=== PATIENT | female | born 1960 | race American Indian/Alaskan Native ===

== ENCOUNTER 2017-06-27 14:46 | Emergency (ER) | payer BC ==
[2017-06-27 18:40] LABS: Basophils % (Auto) 0.7 % (0.0-1.8); Hemoglobin 9.2 gm/dl (10.1-14.3); Mean Corpuscular HGB Conc 31 % (30-34); Mean Corpuscular Volume 77 fl (79-97); Platelet Count 179 K/mm3 (140-440); Red Blood Count 3.91 M/mm3 (3.65-5.03); Red Cell Distribution Width 13.4 % (13.2-15.2); White Blood Count 3.9 K/mm3 (4.5-11.0)
[2017-06-27 18:40] LABS: Bacteria,Urine 2+ /HPF (Negative); Bilirubin,Urine NEG (Negative); Blood,Urine SM (Negative); Ketones,Urine NEG (Negative); Leukocyte Esterase,Urine SM (Negative); Nitrite,Urine NEG (Negative)
[2017-06-27 18:43] LABS: Mean Corpuscular Hemoglobin 24 pg (28-32)
[2017-06-27 18:51] LABS: Anion Gap 18 mmol/L; BUN/Creatinine Ratio 20; Blood Urea Nitrogen 20 mg/dL (7-17); Calcium 8.3 mg/dL (8.4-10.2); Carbon Dioxide 28 mmol/L (22-30); Chloride 93.9 mmol/L (98-107); Glucose 121 mg/dL (65-100); Sodium 136 mmol/L (137-145)
[2017-06-27 19:14] VITALS: BP 127/64
--- NOTE | 2017-06-27 19:50 | Emergency Department Report ---
- General Chief complaint: Weakness Stated complaint: HYPERTENSION Time Seen by Provider: 06/27/17 18:48 Source: patient Mode of arrival: Ambulatory Limitations: No Limitations - History of Present Illness Initial comments: Patient with history of hypertension but has feel poor for several days. Went to PCP today after Dx with UTI yesterday and started on cipro. She had a BP of 93/51 at the clinic so she was sent here. She received 1 L NS in route per patient and immediately started feeling better. She was not tachycardic. No fevers, N/V. Complaint: generalized weakness -: Gradual, days(s) (3) Location: generalized Severity: moderate Severity scale (0 -10): 0 Consistency: intermittent Improves with: rest Worsens with: movement, exertion Context: recent illness Associated Symptoms: denies other symptoms - Related Data Allergies Allergy/AdvReac Type Severity Reaction Status Date / Time aspirin AdvReac Itching Verified 06/27/17 17:34 meperidine [From Demerol] AdvReac Unknown Verified 06/27/17 17:34 ED Review of Systems ROS: Stated complaint: HYPERTENSION Other details as noted in HPI Constitutional: weakness. denies: chills, fever Eyes: denies: eye pain, eye discharge, vision change ENT: denies: ear pain, throat pain Respiratory: denies: cough, shortness of breath, wheezing Cardiovascular: denies: chest pain, palpitations Endocrine: no symptoms reported Gastrointestinal: denies: abdominal pain, nausea, diarrhea Genitourinary: urgency, dysuria. denies: discharge Musculoskeletal: denies: back pain, joint swelling, arthralgia Skin: denies: rash, lesions Neurological: denies: headache, weakness, paresthesias Psychiatric: denies: anxiety, depression Hematological/Lymphatic: denies: easy bleeding, easy bruising ED Past Medical Hx - Past Medical History Previous Medical History?: Yes Hx Hypertension: Yes Hx Dementia: Yes - Surgical History Past Surgical History?: Yes Additional Surgical History: hystorectomy ED Physical Exam - General Limitations: No Limitations General appearance: alert, in no apparent distress - Head Head exam: Present: atraumatic, normocephalic - Eye Eye exam: Present: normal appearance - ENT ENT exam: Present: mucous membranes moist - Neck Neck exam: Present: normal inspection - Respiratory Respiratory exam: Present: normal lung sounds bilaterally. Absent: respiratory distress - Cardiovascular Cardiovascular Exam: Present: regular rate, normal rhythm. Absent: systolic murmur, diastolic murmur, rubs, gallop - GI/Abdominal GI/Abdominal exam: Present: soft, normal bowel sounds - Extremities Exam Extremities exam: Present: normal inspection - Back Exam Back exam: Present: normal inspection - Neurological Exam Neurological exam: Present: alert, oriented X3 - Psychiatric Psychiatric exam: Present: normal affect, normal mood - Skin Skin exam: Present: warm, dry, intact, normal color. Absent: rash ED Course Vital Signs 06/27/17 06/27/17 17:16 19:13 Temperature 99.3 F Pulse Rate 88 94 H Respiratory 20 16 Rate Blood Pressure 107/62 Blood Pressure 107/62 127/64 [Right] O2 Sat by Pulse 96 96 Oximetry ED Medical Decision Making - Lab Data Result diagrams: 06/27/17 18:30 06/27/17 18:30 unremarkable other than U/A c/w UTI. - Medical Decision Making Patient with UTI now treated with cipro. She appears dehydrated and improved with 1 L NS. She did not have positive orthostatics after the 1 L NS. She feels well and understands her dehydration status. She will hold BP meds until her BP is elevated and will return to the ED if worse. She does not appear septic. WBC was normal. BP normalized, and she was never tachycardic. Critical care attestation.: If time is entered above; I have spent that time in minutes in the direct care of this critically ill patient, excluding procedure time. ED Disposition Clinical Impression: Dehydration UTI (urinary tract infection) Qualifiers: Urinary tract infection type: acute cystitis Hematuria presence: with hematuria Qualified Code(s): N30.01 - Acute cystitis with hematuria Hypotension Qualifiers: Hypotension type: orthostatic hypotension Qualified Code(s): I95.1 - Orthostatic hypotension Disposition: -01 TO HOME OR SELFCARE Is pt being admited?: No Does the pt Need Aspirin: No Condition: Good Instructions: Hypotension (ED), Dehydration (ED), Urinary Tract Infection in Women (ED) Referrals: WESTLEY FANG MD [Staff Physician] - 3-5 Days Time of Disposition: 19:53
== END 2017-06-27 20:19 | disposition home or self-care (01) ==
LOC: ED 14:46
DX: N30.01 Acute cystitis with hematuria (principal); I95.1 Orthostatic hypotension; E86.0 Dehydration; I10 Essential (primary) hypertension; E11.9 Type 2 diabetes mellitus without complications
CPT/HCPCS: 36415; 80048; 81001; 85025

== ENCOUNTER 2019-06-06 09:42 | Day surgery (SDC) | payer BC, OTHER ==
--- NOTE | 2019-06-06 11:53 | Anesthesia Consultation ---
Anesthesia Consult and Med Hx Date of service: 06/06/19 - Airway Anesthetic Teeth Evaluation: Partials ROM Head & Neck: Adequate Mental/Hyoid Distance: Adequate Mallampati Class: Class II Intubation Access Assessment: Good - Pulmonary Exam CTA: Yes - Cardiac Exam Cardiac Exam: RRR - Pre-Operative Health Status ASA Pre-Surgery Classification: ASA3 Proposed Anesthetic Plan: MAC - Pulmonary Hx Smoking: No - Cardiovascular System Hx Hypertension: Yes
--- NOTE | 2019-06-06 11:54 | Anesthesia Day of Surgery ---
Anesthesia Day of Surgery - Day of Surgery Patient Examined: Yes Patient H&P Reviewed: Yes Patient is NPO: Yes
[2019-06-06] MEDS ORDERED: SODIUM CHLORIDE 0.9% 1000 ML 1,000 ML IV SCH (12:00)
[2019-06-06] MEDS ORDERED: PROPOFOL 200 MG/20 ML VIAL IV ONE ×2 (12:24)
--- NOTE | 2019-06-06 12:49 | Short Stay Summary ---
Short Stay Documentation Date of service: 06/06/19 Narrative H&P: The patient is a 58 yo aaf who presents for screening colonoscopy; denies prior screening colonoscopy. - History Past Medical History: other (no changes from clinic note) Past Surgical History: Other Social history: other - Allergies and Medications Current Medications: Allergies aspirin Adverse Reaction (Verified 06/27/17 17:34) Itching meperidine [From Demerol] Adverse Reaction (Verified 06/27/17 17:34) Unknown Home Medications Medication Instructions Recorded Confirmed Last Taken Type AtorvaSTATin [Lipitor] 10 mg PO QHS 06/06/19 06/06/19 06/05/19 19:00 History Metformin HCl [Metformin HCl ER] 1 tab PO DAILY 06/06/19 06/06/19 06/05/19 19:00 History Sitagliptin Phosphate [Januvia] 1 tab PO DAILY 06/06/19 06/06/19 06/06/19 07:00 History carvediloL [Coreg] 1 tab PO DAILY 06/06/19 06/06/19 06/05/19 11:00 History Active Medications Sodium Chloride (Nacl 0.9% 1000 Ml) 1,000 mls @ 50 mls/hr IV DIRECT HARRISON Last Admin: 06/06/19 11:32 Dose: 50 mls/hr Documented by: - Physical exam General appearance: no acute distress Heart: Regular rate Gastrointestinal: normal - Brief post op/procedure progress note Date of procedure: 06/06/19 Pre-op diagnosis: Screening for colon cancer Post-op diagnosis: other (colon polyps x 2 removed with snare polypectomy) Procedure: Ascending colon polyp removed with cold snare polypectomy rectal polyp removed with cold snare Anesthesia: MAC Findings: Colon polyps x 2 Surgeon: BARTOLO ALCANTAR Estimated blood loss: minimal Pathology: list (jar A - ascending colon polyp; jar B - rectal polyp) Specimen disposition: to lab Condition: stable - Disposition Condition at discharge: Good Disposition: DC-01 TO HOME OR SELFCARE Short Stay Discharge Plan Follow up with: LESTER JACK MD [Primary Care Provider] - 7 Days
--- NOTE | 2019-06-06 12:51 | Operative Report ---
Operative Report Operative Report: Colonoscopy Procedure Note with snare polypectomy Date of procedure: 06/06/2019 Endoscopist: Ricki Dhaliwal Pre-op diagnosis/indication: Screening for colorectal cancer Post-op diagnosis: colon polyps x 2 MEDICATIONS: MAC COMPLICATIONS: No immediate complications ESTIMATED BLOOD LOSS: Minimal DESCRIPTION OF PROCEDURE: After consent was obtained, the patient was placed in the left lateral decubitis position. The olympus colonoscope was inserted into the rectum under direct vision, and advanced to the cecum without difficulty. The quality of prep was fair. The patient tolerated the procedure well. The patient's vital signs were monitored continuously throughout the procedure. FINDINGS: There was an ~1 cm sessile polyp in the ascending colon. The polyp was removed with cold snare polypectomy and retrieved. There was an ~5 mm sessile polyp in the rectum. The polyp was removed with cold snare polypectomy and retrieved. IMPRESSION: 1. Colon polyps x 2 removed with cold snare polypectomy as above RECOMMENDATIONS: -follow-up pathology -repeat colonoscopy in 3 years for surveillance -follow up in GI clinic as scheduled
[2019-06-06 13:10] VITALS: BP 144/84
--- NOTE | 2019-06-06 14:31 | Post Anesthesia Evaluation ---
- Post Anesthesia Evaluation Patient Participated: Yes Airway Patent: Yes Stable Respiratory Function: Yes Nausea/Vomiting: No Temp > 96.8F: Yes Pain Manageable: Yes Adequeate Hydration: Yes Anesthesia Complications: No Block Receding Appropriately: Not Applicable Patient on Ventilator: No
== END 2019-06-06 09:43 | disposition home or self-care (01) ==
LOC: GIO 09:42
PROVIDERS: ATTEND Internal Medicine Gastroenterology
DX: Z12.11 Encounter for screening for malignant neoplasm of colon (principal); D12.2 Benign neoplasm of ascending colon; D12.8 Benign neoplasm of rectum; I10 Essential (primary) hypertension; E11.9 Type 2 diabetes mellitus without complications; E78.00 Pure hypercholesterolemia, unspecified; Z86.010 Personal history of colon polyps; Z88.6 Allergy status to analgesic agent; Z79.84 Long term (current) use of oral hypoglycemic drugs; Z90.710 Acquired absence of both cervix and uterus; Z88.8 Allergy status to other drugs, medicaments and biological substances
CPT/HCPCS: 45385; 82962; 88305; J2704